=== PATIENT | male | born 1970 | race Caucasian/White ===

== ENCOUNTER 2018-02-02 06:21 | Day surgery (SDC) | payer OTHER ==
[~2018-02-02] VITALS: Ht 182.9 cm; Wt 129.0 kg
[~2018-02-02 06:21] MED LIST: ALPR1TAB3 PO; ATOR40TA49 PO; CO Q100C9 PO; DILT240C7 PO; FENO50TA PO; FERR325T PO; FOLI1 PO; HYDR10SO PO; KRIL300C PO; MAGN500T4 PO; NORT25CA PO; OMEP40CA2 PO; QUET50TA PO; RIVA20 PO; VIIB40TA PO
[2018-02-02] MEDS ORDERED: IOHEXOL 350 MG/ML 50 ML BTL (for Cath Lab) OTHER ONE (06:22)
[2018-02-02 07:04] VITALS: BP 130/63; PULSE 72; RESP 18; O2SAT 96
[2018-02-02] MEDS ORDERED: OMEP40CA2 (07:19)
[2018-02-02] MEDS ORDERED: CYCL5TAB PO (07:19)
[2018-02-02] MEDS ORDERED: HYDR25TA5 PO (07:19)
[2018-02-02] MEDS ORDERED: COQ-100C5 (07:19)
[2018-02-02] MEDS ORDERED: DULO20 PO (07:19)
[2018-02-02] MEDS ORDERED: FLUT1INH INH (07:19)
[2018-02-02] MEDS ORDERED: GABA300C5 PO (07:19)
[2018-02-02] MEDS ORDERED: ALPR1TAB3 PO (07:19)
[2018-02-02] MEDS ORDERED: VIIB40TA PO (07:19)
[2018-02-02] MEDS ORDERED: ATOR40TA16 PO (07:19)
[2018-02-02] MEDS ORDERED: XARE20TA PO (07:19)
[2018-02-02] MEDS ORDERED: TIZA4TAB PO (07:19)
[2018-02-02] MEDS ORDERED: METO-426 PO (07:19)
[2018-02-02] MEDS ORDERED: ARIP1TAB11 PO (07:19)
[2018-02-02] MEDS ORDERED: LISI-515 PO (07:19)
[2018-02-02] MEDS ORDERED: ASPI-516 CHEW (07:19)
[2018-02-02] MEDS ORDERED: FENO50TA PO (07:19)
[2018-02-02] MEDS ORDERED: HEPARIN-NS/PF FLUSH BAG 1,000 ML IV FLUSH ONE (10:11)
[2018-02-02] MEDS ORDERED: NITROGLYCERIN INJ 5 ML ONE (10:14)
[2018-02-02] MEDS ORDERED: HEPARIN SODIUM - IV 10,000 UNITS/10 ML VIAL ONE (10:14)
[2018-02-02] MEDS ORDERED: HEPARIN-NS/PF FLUSH BAG 2,000 ML IV FLUSH ONE (10:14)
[2018-02-02] MEDS ORDERED: MIDAZOLAM HCL 2 MG/2 ML VIAL ONE ×2 (10:14→10:28)
[2018-02-02] MEDS ORDERED: STERILE WATER FOR INJECTION 10 ML VIAL ONE (10:22)
[2018-02-02] MEDS ORDERED: BIVALIRUDIN 250 MG VIAL ONE (10:22)
[2018-02-02] MEDS ORDERED: MISC INFORMATION XX ONE (10:45)
--- NOTE | 2018-02-02 10:56 | CATHPROC ---
[facility] HIS Report Study Information Study Number Admission Scheduled Start Study Start [id number] Feb 02 2018 6:21AM 02/02/2018 Feb 02 2018 9:42AM Letcher Service Cardiac Catheterization Admit Source Facility Department Other [facility] - Director Private Physician and Clinical Staff Initial Genaro Nation Summer InternshipCarla Basilio RN Summer InternshipKathryn Harvey RN Other cathlab, cathlab Recorder [place] Whitt RCIS Scrub Batt, DaleRT(R) Procedures Performed Procedure Location (Site) Vessel Name Coronary Angiograms LCA Left Coronary Coronary Angiograms RCA Right Coronary L Heart Cath Wire insertion Radial (right) Radial Art. Equipment Time Mud Worker Description Size Mfg Part Number Used/Scraped TRANSDUCER, TRUWAVE [id number] 09:50 Finding Something 3 LE * Used W/STOCKCOCK *[id number] *[id number] [id number] *[id number] 09:50 [employer] PACK, CCL CUSTOM * Used *[id number] 09:50 [employer] SUPPORT, ARTERIAL ADULT [id number] *[id number] Used [id number] 09:50 Contix PACER PEN, SKIN DUAL W/ RULER * Used *[id number] BAND, RADIAL COMPRESSION TR [id number] 10:41 comScore 29CM Used LARGE 29 *[id number] SHEATH, FR6 RADIAL PRELUDE 09:50 comScore FR 6 [id number] Used EASE 11CM [id number] 09:50 comScore WIRE, EXCHANGE 260CM 3MMJ 260CM Used *[id number] 09:50 [employer] OMNIPAQUE, 350 MG, 150ML 150ML [id number] Used [id number] 09:50 [employer] BLANKET,WARM AIR CCL * Used *[id number] History: Current Medications Medication Dosage/Unit Route Frequency Last Date/Time Taken Beta Selina ASA History: Allergies Allergy Reaction No Known Allergies History: Risk Factors Family History of Hypertension Dyslipidemia Previous MD Previous Heart Failure Premature CAD Yes Yes No No No Prior Valve Prior PCI Prior CABG Surgery No No No Cerebrovascular Peripheral Artery Chronic Lung On Dialysis Diabetes Disease Disease Disease No No No No No History: CV Disease Selection Items Cardiomyopathy History: Stress Tests Stress or Imaging Studies Performed Yes Standard Exercise Stress Test No Stress Echo No Stress Test SPECT Stress Test SPECT Result Stress Test SPECT Ischemia Risk/Extent Yes Positive Intermediate Stress Test CMR No Cardiac CTA Coronary Calcium Score No No History: Other Disease Selection Items HTN Previous RF Ablation History: Other Current Smoker Method Quit Packs a Day Years Used Pack Years No Cigarettes 18 Years Ago 1 10 10 Labs Hgb (g/dl) Hct (%) WBC (l/cumm) Platelets (thousands) 11.60-17.00 35.00-51.00 4.00-11.00 150.00-450.00 12.0 40 4.7 302 Glucose (mg/dl) BUN (mg/dl) Creatinine (mg/dl) BUN:Creatinine (1:x) 74.00-106.00 7.00-18.00 0.50-1.30 10.00-20.00 104 21 1.0 21 Na (meq/l) K (meq/l) 136.00-145.00 3.50-5.10 142 4.3 INR (PTT:PT) 0.90-1.10 1 CPK-MB (ng/ML) 0.50-3.60 Not Drawn Medication Medication Total Dose (Bolus/Oral) Medication Total Dosage/Unit 1% XYLOCAINE 10 mL FENTANYL 50 mcg HEPARIN 5000 units NTG (IC) 200 mcg OXYGEN 2 l/min VERSED 2 mg Medications (Bolus/Oral) Medication Time Given Dosage/Unit Administered By Reason VERSED 02/02/2018 10:26:18 AM 1 mg Mrache, Kathryn 1 mg VERSED given in lab by Kathryn López RN in Left Antecubital via Peripheral IV. Ordered by Genaro Dowd. FENTANYL 02/02/2018 10:27:37 AM 50 mcg Mrache, Kathryn 50 mcg FENTANYL given in lab by Kathryn López RN in Left Antecubital via Peripheral IV. Ordered b Genaro Kathleen. 1% XYLOCAINE 02/02/2018 10:31:13 AM 10 mL Mrache, Kathryn 10 mL 1% XYLOCAINE given in lab by Kathryn López RN in Right Radial via Subcutaneous. Ordered by Genaro Brown. OXYGEN 02/02/2018 10:31:41 AM 2 l/min Desiree Lópezaret 2 l/min OXYGEN given in lab by Kathryn López RN via Nasal. Ordered by Genaro Brown. VERSED 02/02/2018 10:31:46 AM 1 mg Mrache, Kathryn 1 mg VERSED given in lab by Kathryn López, HOA in Left Antecubital via Peripheral IV. Ordered by Genaro Dowd. HEPARIN 02/02/2018 10:34:04 AM 5000 units Kathryn López 5000 units HEPARIN given in lab by Kathryn López, HOA in Left Antecubital via Peripheral IV. Ordere d by Genaro Brown. NTG (IC) 02/02/2018 10:34:44 AM 200 mcg Genaro Brown 200 mcg NTG (IC) given in lab by Genaro Brown in Right Radial via Intra-arterial. Ordered by Genaro Brown. Medication (Drip) Medication Time Given Dosage/Unit Concentration/Unit Diluent (ml) Solution IV Solutions 02/02/2018 10:08:57 AM 0 mL (IV) 500 NaCl .9 IV Solutions given in lab by Kathryn López, HOA in Left Antecubital via Peripheral IV. Pump/Drip Fl ow = 20 ml/hr using NaCl .9. Ordered by Genaro Brown. Initial Case Assessment Cardiovascular HR NIBP 71 127/79 Edema Present Skin color Skin None Normal Warm Dry Circulatory - Right Pulses Dorsalis Pedis Femoral Radial 3 3 3 Scale (0,1,2,3,4,d) Circulatory - Left Pulses Dorsalis Pedis Femoral Radial 3 3 Scale (0,1,2,3,4,d) Neurological State Oriented to time-place- Alert Moves all extremities person Respiration - General Respiration Rate SpO2 (%) (B/min) 14 97 Final Case Assessment Cardiovascular HR NIBP 69 124/77 Edema Present Skin color Skin None Normal Warm Dry Circulatory - Right Pulses Dorsalis Pedis Femoral Radial 3 3 3 Scale (0,1,2,3,4,d) Circulatory - Left Pulses Dorsalis Pedis Femoral Radial 3 3 Scale (0,1,2,3,4,d) Neurological State Oriented to time-place- Alert Moves all extremities person Respiration - General Respiration Rate SpO2 (%) (B/min) 17 94 Chronological Log Time Study Chronological Log 10:03:59 Patient arrived via Bed. 10:04:00 Patient Name, D.O.B, / Armband Verified By R.N. 10:04:01 Consent signed by the physician and the patient and verified by the Director Private staff. 10:04:02 Pre-op and post- op instructions given; patient acknowledges understanding of instructions. 10:04:06 Verbal Stimulation=2 Physical Stimulation=2 Airway=2 Respiration=2 TOTAL=8. (0=absent, 1=li mited, 2=present) Vitals capture started with the following parameters, Patient=Adult, Interval=5 min, Initial Pr qojfks=513 mmHg, 10:07:01 Deflation Rate=5 mmHg, Cuff placed on Unknown 10:08:47 Patient has been NPO for More than 6Hrs. 10:08:49 NO Skin Breakdown- 10:08:52 Patient Warmer Placed on the Table. 10:08:53 Rebeka Prominences Protected 10:08:56 A # 20 IV was noted in the Antecubital (left). Grade = 0 IV Solutions given in lab by Kathryn López RN in Left Antecubital via Peripheral IV. Pump/D rip Flow = 20 ml/hr 10:08:57 using NaCl .9. Ordered by Genaro Brown. 10:08:58 History and physical on the chart or being dictated. 10:09:03 Reference ECG taken 10:10:12 Vitals capture stopped. Vitals capture started with the following parameters, Patient=Adult, Interval=5 min, Initial Pr mrztll=442 mmHg, 10:10:13 Deflation Rate=5 mmHg, Cuff placed on Unknown 10:11:18 HR=71 bpm, YZTL=866/79 mmhg, SpO2=96.0 %, Resp=14 B/min Assessment: Initial Case, HR=71 BPM, VOZT=240/79 mmhg, Edema=None, Color=Normal, Skin = Warm, D ry Right Pulses: Art Ped=3, Femoral=3, Radial=3 10:11:21 Left Pulses: Art Ped=3, Femoral=3 Neurological: State=Alert, Ox3, DAVILA Respiration: Resp=14 B/min, SpO2=97 % 10:15:50 HR=69 bpm, ACPV=062/80 mmhg, SpO2=98 %, Resp=14 B/min, Pain=0, Viktoria=10, Mayorga=2 10:16:14 Right Radial and RIGHT groin prepped with 2% chlorhexidine, and draped after a 3 min. waiti ng time. 10:20:52 HR=69 bpm, SDDT=812/82 mmhg, SpO2=95 %, Resp=20 B/min, Pain=0, Viktoria=10, Mayorga=2 10:24:36 Pressure channel 1 zeroed. 10:25:51 HR=69 bpm, JPSR=097/83 mmhg, SpO2=95 %, Resp=13 B/min 10:26:18 1 mg VERSED given in lab by Kathryn López RN in Left Antecubital via Peripheral IV. Ord ered by Genaro Brown. 50 mcg FENTANYL given in lab by Kathryn López RN in Left Antecubital via Peripheral IV. Ord ered by Kevin, 10:27:37 Genaro. Time Out. Correct patient, correct procedure, correct physician, power injector not loaded with contrast with surgical 10:30:42 team present. Time Out Concurred by MD and individual staff in procedure. 10:30:54 HR=69 bpm, NFUY=296/79 mmhg, SpO2=98.0 %, Resp=16 B/min, Pain=0, Viktoria=10, Mayorga=2 10:30:55 Case Start 10 mL 1% XYLOCAINE given in lab by Katrhyn López RN in Right Radial via Subcutaneous. Order ed by Kevin, 10:31:13 Genaro. 10:31:41 2 l/min OXYGEN given in lab by Kathryn López RN via Nasal. Ordered by Genaro Brown. 10:31:46 1 mg VERSED given in lab by Kathryn López RN in Left Antecubital via Peripheral IV. Ord ered by Genaro Brown. 10:32:11 Access site was Radial Artery. A SHEATH, FR6 RADIAL PRELUDE EASE 11CM FR 6 was advanced into the Radial (right) using the Kp fied Seldinger 10:32:24 technique. A JR 5.0 INFINITI CATHETER FR 6 was advanced over a wire. OMNIPAQUE, 350 MG, 150ML 150ML was us ed for 10:33:28 injections. 5000 units HEPARIN given in lab by Kathryn López RN in Left Antecubital via Peripheral IV. Ordered by Kevin, 10:34:04 Genaro. 10:34:44 200 mcg NTG (IC) given in lab by Genaro Brown in Right Radial via Intra-arterial. Ordered by Genaro Brown. 10:35:53 HR=69 bpm, QDBA=192/66 mmhg, SpO2=96.0 %, Resp=19 B/min, Pain=0, Viktoria=10, Mayorga=2 Recorded Pressure: Ao, HR=70, Condition=Condition 1 10:36:53 (Aorta) Ao 92/66/79 10:37:01 The RCA was injected and visualized at various angles. OMNIPAQUE, 350 MG, 150ML 150ML used . After removing the current catheter a JL 3.5 INFINITI CATHETER FR 6 was advanced over a WIRE, E XCHANGE 260CM 10:38:00 3MMJ 260CM. 10:39:22 The LCA was injected and visualized at various angles. OMNIPAQUE, 350 MG, 150ML 150ML used . 10:40:27 A WIRE, EXCHANGE 260CM 3MMJ 260CM was inserted via Radial (right). 10:40:38 Catheter was removed 10:40:52 HR=69 bpm, VMLK=244/70 mmhg, SpO2=96.0 %, Resp=20 B/min, Pain=0, Viktoria=10, Mayorga=2 10:41:32 Case End 10:41:54 Catheter(s) removed without difficulty Radial Compression Device Used. 11 mLs of air placed in BAND, RADIAL COMPRESSION TR LARGE 29 29 CM. Affected 10:41:57 hand 96 % O2 saturation. 10:42:26 Cine recording checked. 10:43:56 Bedside Report will be given. 10:44:00 A Left Heart Cath was performed. 10:45:53 HR=69 bpm, WRJJ=318/77 mmhg, SpO2=94.0 %, Resp=17 B/min, Pain=0, Viktoria=10, Mayorga=2 10:47:04 Vitals capture stopped. Assessment: Final Case, HR=69 BPM, VUCS=685/77 mmhg, Edema=None, Color=Normal, Skin = Warm, Dr y Right Pulses: Art Ped=3, Femoral=3, Radial=3 10:47:11 Left Pulses: Art Ped=3, Femoral=3 Neurological: State=Alert, Ox3, DAVILA Respiration: Resp=17 B/min, SpO2=94 % 10:52:58 Patient moved to stretcher End Study - Contrast Media Used In Study Contrast Total Opened (mL) Total Used (mL) Total Wasted (mL) Omnipaque 25 25 0 End Study - Maximum Contrast Load Max Contrast Load (mL) 645.0 End Study - Radiation Exposure Fluoro Time (minutes) 1.8 End Study - Patient Disposition Complications Transferred To Telemetry Bed
--- NOTE | 2018-02-02 11:03 | MA ---
cc: Genaro Brwon MD DATE: 02/02/2018 INDICATION: Abnormal stress test, intermediate risk with cardiomyopathy and chest pain. PROCEDURES PERFORMED: 1. Fluoroscopy with interpretation. 2. Coronary angiography. METHOD: Risks, benefits and alternatives discussed with the patient. The patient understood and consented to the procedure. The patient was brought into the catheterization lab and placed on the catheterization table. The right wrist was prepped and draped in a sterile fashion. The right wrist was anesthetized with 2% lidocaine. The right radial artery was cannulated and a 6-English 7 cm sheath was placed without difficulty. CORONARY ANGIOGRAPHY: 1. Left main coronary artery is angiographically normal. 2. Left anterior descending coronary artery is tortuous, but angiographically normal. 3. Left circumflex coronary artery gives rise to an obtuse marginal branch angiographically normal. 4. Right coronary artery is a dominant vessel giving rise to a posterior descending branch. The right coronary artery is angiographically normal. CONCLUSIONS: Angiographically normal coronary arteries. PLAN: Mild cardiomyopathy is not ischemic etiology. Stress perfusion abnormality may be related to his pacing. I will continue with medical therapy. He will start his anticoagulation back up tonight. We approached from the radial artery which has a very low likelihood for any bleeding complications. He will be discharged today and followup with Dr. Willett in the outpatient setting. Genaro Brown MD ANA/DL , 10:47 AM , 11:02 AM
--- NOTE | 2018-02-03 10:24 | EKG ---
Date Performed: 02/02/2018 Time Performed: 07:25:50 PTAGE: 47 years EKG: Ventricular pacing. Lead(s) unsuitable for analysis: aVL Pacemaker rhythm - no further anal ysis Abnormal ECG PREVIOUS TRACING : 07/09/2015 06.18 Since the prior tracing, the rhythm is now AV sequentially paced so the tracings are not directly comparable. DOCTOR: Cindi Henderson Interpretating Date/Time 02/03/2018 10:24:07
== END 2018-02-02 14:05 | disposition home or self-care (01) ==
LOC: HDOC 06:21 → HDIC 06:21 → HDOC 14:05
PROVIDERS: ATTEND Internal Medicine
DX: I42.9 Cardiomyopathy, unspecified (principal); I48.0 Paroxysmal atrial fibrillation; I10 Essential (primary) hypertension; E78.5 Hyperlipidemia, unspecified; G47.33 Obstructive sleep apnea (adult) (pediatric); F17.200 Nicotine dependence, unspecified, uncomplicated
CPT/HCPCS: 86850; 86900; 86901; 93005; 93454; 99152; 99153; C1769; C1893; J1644; J2250; J3010; J0583; Q9967